=== PATIENT | male | born 1940 | race Caucasian/White ===

== ENCOUNTER → 2016-12-10 | Outpatient (CLI) | payer MEDICARE, BC ==
[~2016-12-10] MED LIST: AIRBORNE GUMMI1 EACH PO; ALIGN4 MG PO; AQUAPHOR1 GM TOP; ARICEPT5 MG PO; ARTANE2 MG PO; ASPIRIN (CHILDR81 MG PO; ASPIRIN EC81 MG PO; ASPIRIN LO-DOSE81 MG PO; ATARAX25 MG PO; BETADINE SOLUT118 ML TOP; BETADINE30 ML TOP; BOOST237 ML PO; CALCIUM CARBON600 MG PO; CAPTOPRIL12.5 MG PO; CENTRUM SILVER1 TAB PO; CIPRO500 MG PO; CO Q-10 ER100 MG PO; CO Q-1010 MG PO; COLACE100 MG PO; COQ-10100 MG PO; COREG 3.1253.125 MG PO; COZAAR25 MG PO; COZAAR50 MG PO; DELTASONE20 MG PO; DIFLUCAN100 MG PO; DULCOLAX10 MG R; EFFEXOR XR75 MG PO; EFFEXOR75 MG PO; FERREX 150150 MG PO; FISH OIL 1,0001 EACH PO; FISH OIL1000 MG PO; FLOMAX0.4 MG PO; FLONASE 50 MCG/16 GM NOSE; FLONASE16 GM NOSE; GLUCAGON/GLUCAGE1 MG IM; GLUCOSE4 GM PO; LANTUS (IN100 UNIT/M SUB-Q; LEVAQUIN 750 M750 MG PO; LEVAQUIN500 MG PO; LEVEMIR100 UNIT/1 SUB-Q; LIPITOR40 MG PO; LOPRESSOR PO; MIDODRINE HCL5 MG PO; MILK OF MA400 MG/5 M PO; MIRALAX PO527 GM/BOT PO; MIRALAX17 GM PO; MYCOSTATIN CR15 GM TOP; NEURONTIN100 MG PO; NORCO 5-325 MG1 TAB PO; NORVASC5 MG PO; NOVOLOG100 UNIT/1 SUB-Q; NOVOLOG100 UNIT/M SUB-Q; OSCAL PO; OXYGEN INH; PHILLIPS'400 MG/5 M PO; PLAVIX75 MG PO; PROAMATINE5 MG PO; PROSCAR5 MG PO; PROTONIX40 MG PO; REGLAN5 MG PO; TYLENOL325 MG PO; XANAX0.25 MG PO; ZYRTEC10 M3 PO
== END | disposition disaster alternative care site (69) ==
LOC: GAMB 14:22
DX: R53.1 Weakness (principal); I13.0 Hypertensive heart and chronic kidney disease with heart failure and stage 1 through stage 4 chronic kidney disease, or unspecified chronic kidney disease; E11.22 Type 2 diabetes mellitus with diabetic chronic kidney disease; N18.2 Chronic kidney disease, stage 2 (mild); I50.9 Heart failure, unspecified; I48.2 Chronic atrial fibrillation; I63.9 Cerebral infarction, unspecified; F03.90 Unspecified dementia, unspecified severity, without behavioral disturbance, psychotic disturbance, mood disturbance, and anxiety; K21.9 Gastro-esophageal reflux disease without esophagitis; F60.4 Histrionic personality disorder; C18.9 Malignant neoplasm of colon, unspecified; G20 Parkinson's disease; E11.40 Type 2 diabetes mellitus with diabetic neuropathy, unspecified; D64.9 Anemia, unspecified; I70.90 Unspecified atherosclerosis; E78.5 Hyperlipidemia, unspecified; I95.9 Hypotension, unspecified; R50.9 Fever, unspecified; Z79.82 Long term (current) use of aspirin; G47.30 Sleep apnea, unspecified; Z79.51 Long term (current) use of inhaled steroids; Z79.4 Long term (current) use of insulin; Z79.891 Long term (current) use of opiate analgesic; Z88.1 Allergy status to other antibiotic agents; Z88.8 Allergy status to other drugs, medicaments and biological substances; Z88.0 Allergy status to penicillin; Z88.6 Allergy status to analgesic agent; Z87.440 Personal history of urinary (tract) infections; Z86.19 Personal history of other infectious and parasitic diseases
CPT/HCPCS: A0422; A0425; A0427